=== PATIENT | female | born 1985 | race Caucasian/White ===

== ENCOUNTER 2019-06-12 18:48 | Emergency (ER) | payer OTHER, SELFPAY ==
[2019-06-12 18:53] VITALS: BP 116/81; PULSE 124; RESP 20; TEMP 37.3; O2SAT 100
--- NOTE | 2019-06-12 19:48 | PC.NURSE ---
Pt now teary eyed states, she feels bad because she looks like a bad person since none of her meds works and she's in constant pain.
[2019-06-12 19:49] LABS: Basophils Percent Auto 0.4 % (0.2-1.2); Eosinophils Absolute Auto 0.1 K/mm3 (0-0.3); Eosinophils Percent Auto 1.2 % (0-4.4); Hematocrit 40.7 % (37.0-47.0); Immature Granulocyte Absolute 0.02 K/mm3 (0.00-0.031); Immature Granulocyte Percent A 0.2 % (0-0.5); Lymphocytes Absolute Auto 2.18 K/mm3 (0.9-3.2); Lymphocytes Percent Auto 22.8 % (18.3-44.2); Mean Corpuscular HGB Conc 31.9 g/dl (32-36); Mean Corpuscular Hemoglobin 29.1 pg (26-34); Mean Corpuscular Volume 91.3 fl (80-100); Mean Platelet Volume 10.3 fl (7.4-10.4); Monocytes Absolute Auto 0.7 K/mm3 (0.1-0.6); Monocytes Percent Auto 7.5 % (2.6-8.5); Neutrophils Absolute Auto 6.5 K/mm3 (1.3-6.7); Neutrophils Percent Auto 67.9 % (45.5-73.1); Platelet Count Result 276 k/mm3 (150-375); Red Blood Count 4.46 M/mm3 (4.2-5.4); White Blood Count 9.6 K/mm3 (4.5-10.0)
[2019-06-12 20:00] LABS: Acetaminophen < 10 ug/mL (10-30)
[2019-06-12 20:01] LABS: Alanine Aminotransferase 13 U/L (4-35); Albumin Level 4.4 g/dL (3.5-5.1); Alkaline Phosphatase 84 U/L (38-126); Aspartate Amino Transferase 22 U/L (14-36); Bilirubin,Total 0.5 mg/dL (0.2-1.3); Blood Urea Nitrogen 3 mg/dL (7-17); Calcium 9.3 mg/dL (8.4-10.2); Carbon Dioxide 26 mmol/L (22-30); Chloride 105 mmol/L (98-107); Estimated CRCL calculation 109 ml/min; Estimated Glomerular Filt Rate > 60; Glucose 93 mg/dL (65-105); Potassium 3.4 mmol/L (3.4-5.0); Sodium 142 mmol/L (137-145)
--- NOTE | 2019-06-12 20:06 | ED.GENADULT ---
HPI - General Adult General Chief complaint: Unspecified Stated complaint: FACIAL PAIN/ POST SURGERY Time Seen by Provider: 06/12/19 19:08 Source: patient Mode of arrival: ambulatory Limitations: no limitations History of Present Illness HPI narrative: Patient presents with chief complaint of jaw pain that has been worsening since her maxillary surgery by Dr. Mays on Sunday. Patient states that her original surgery was in May however she developed infection of the bone graft and had to have a removed on Sunday. Patient states that she ran out of the pain medication prescribed by the maxillofacial surgeon and now her pain is immense. Patient states she has a high pain tolerance because she takes Percocet on a daily basis for chronic pain. Patient reports that she has felt feverish. Patient states that she feels a sensation of having a hole in her mouth which makes it painful when she swallows. Patient states that she has not been smoking cigarettes because of this she has had to vape. Patient states she is also felt feverish. Patient states she is not taking any pain medication other than a Tylenol this morning. Patient states that she has 120 tablets of Percocet prescribed by her spray painting machine operator but she has not used any as she was told to sit it to the side and take medication prescribed by the maxillofacial surgeon. Patient states that she was placed on azithromycin. Patient states she is out of the azithromycin at this time. Patient denies drainage from the incision area in her upper gum. Patient states occasionally there is a small amount of bleeding from the area. Related Data Allergies Allergy/AdvReac Type Severity Reaction Status Date / Time amoxicillin Allergy Unknown Skin Verified 05/31/19 18:42 Reaction clavulanic acid Allergy Unknown hives Verified 05/31/19 18:42 Review of Systems Review of Systems: Narrative: CONSTITUTIONAL: Reports feeling feverish denies chills, or sweats. EYES: Denies visual changes, redness, or discharge. ENT: Reports upper jaw pain denies rhinorrhea, congestion, sore throat, or otalgia. CARDIOVASCULAR: Denies chest pain, palpitations, or edema. RESPIRATORY: Denies cough or dyspnea. GASTROINTESTINAL: Denies abdominal pain, nausea, vomiting, or diarrhea. GENITOURINARY: Denies dysuria or hematuria. SKIN: Denies rash or itching. MUSCULOSKELETAL: Denies back pain, joint pain, or myalgia. NEUROLOGIC: Denies headache, numbness, dizziness, or weakness. PSYCHIATRIC: Denies anxiety or depression. [facility] Social History Social History (Updated 06/12/19 @ 20:10 by Linda Sanders PA-C) Smoking status: Current every day smoker Tobacco type: e-cigarettes Exam Narrative: Exam Narrative: GENERAL: Well-appearing, well-nourished, and in no acute distress. HEAD: Normocephalic, atraumatic. EYES: PERRLA and EOMI. ENT: Nares clear, no rhinorrhea or epistaxis. Mucous membranes moist. Oropharynx without tonsillar hypertrophy exudate or other lesions. Bilateral TMs pearly roblero nonbulging. sutures noted to upper gum. There is expected mild edema without extensive erythema. No signs of drainage or bleeding. NECK: Supple. No adenopathy or masses. No carotid bruits or JVD CHEST: Clear to auscultation. No respiratory distress. No wheezes rales or rhonchi HEART: Regular rate and rhythm. Normal peripheral pulses. EXTREMITIES: Normal range of motion. No edema. SKIN: Warm, dry, no rash. NEURO: No focal deficits. Alert and oriented x3. PSYCH: Normal mood and affect. Course Vital Signs Vital signs: Vital Signs Temperature 99.2 F 06/12/19 18:53 Pulse Rate 124 H 06/12/19 18:53 Respiratory Rate 06/12/19 18:53 Blood Pressure 116/81 06/12/19 18:53 Pulse Oximetry 100 06/12/19 18:53 Temperature 99.2 F 06/12/19 18:53 Pulse Rate 124 H 06/12/19 18:53 Respiratory Rate 06/12/19 18:53 Blood Pressure 116/81 06/12/19 18:53 Pulse Oximetry 100 06/12/19 18:53
== END 2019-06-12 20:50 | disposition home or self-care (01) ==
PROVIDERS: Physician Assistant; Emergency Provider Emergency Medicine
DX: G89.18 Other acute postprocedural pain (principal); R68.84 Jaw pain; F17.290 Nicotine dependence, other tobacco product, uncomplicated; Z79.899 Other long term (current) drug therapy
CPT/HCPCS: 36415; 80053; 80307; 85025; 99283

== ENCOUNTER 2021-09-20 11:35 | Emergency (ER) | payer OTHER, SELFPAY ==
--- NOTE | ~2021-09-20 | XR_ITS ---
EXAMINATION: XR humerus RT DATE: 09/20/2021 13:26 INDICATION: Right upper arm injury. TECHNIQUE: 2 views of right humerus were obtained. COMPARISON: None. FINDINGS: Bone alignment is normal. No fracture. Joint spaces are well maintained. IMPRESSION: 1. No fracture. Reviewed, dictated and finalized at location B. IMPRESSION: 1. No fracture.
--- NOTE | ~2021-09-20 | XR_ITS ---
EXAMINATION: XR forearm RT 2V DATE: 09/20/2021 12:37 INDICATION: Right forearm injury. TECHNIQUE: 2 views of right forearm were obtained. COMPARISON: None. FINDINGS: Bone alignment is normal. No fracture. Joint spaces are well maintained. There is no elbow joint effusion. IMPRESSION: 1. Normal right forearm. Reviewed, dictated and finalized at location B. IMPRESSION: 1. Normal right forearm.
--- NOTE | ~2021-09-20 | XR_ITS ---
EXAMINATION: XR lumbar spine 2-3V DATE: 09/20/2021 16:01 INDICATION: Mid and low back pain. Fall. TECHNIQUE: 3 views of lumbar spine were obtained. COMPARISON: None. FINDINGS: There is 10 degrees levoscoliosis of thoracolumbar spine. Vertebral body heights are normal . Intervertebral disc heights are normal. There are endplate osteophytes at a few levels. There is mu ltilevel mild facet joint osteoarthritis. IMPRESSION: 1. Mild lumbar spondylosis. 2. Thoracolumbar levoscoliosis. Reviewed, dictated and finalized at location B.
--- NOTE | ~2021-09-20 | XR_ITS ---
XR hip RT min 2V 09/20/2021 12:37 Indication: Right hip pain Procedure: 2 views right hip Comparison: No prior studies for comparison. Findings: Mild osteoarthritis of the right hip. No fracture or traumatic malalignment. Surrounding os seous structures and soft tissues are unremarkable. Impression: 1: No acute fracture. Reviewed, dictated and finalized at location A. Impression: 1: No acute fracture.
--- NOTE | ~2021-09-20 | XR_ITS ---
EXAMINATION: XR thoracic spine 2V DATE: 09/20/2021 16:01 INDICATION: Mid back pain. Fall. TECHNIQUE: 2 views of thoracic spine were obtained. COMPARISON: None. FINDINGS: There is 7 degrees dextrocurvature of mid thoracic spine. Vertebral body heights are normal . There is mildly decreased disc height at multiple levels in mid thoracic spine with endplate osteop hytes. IMPRESSION: 1. Mild thoracic spondylosis. Reviewed, dictated and finalized at location B.
--- NOTE | ~2021-09-20 | XR_ITS ---
EXAMINATION: XR knee RT 3V DATE: 09/20/2021 12:37 INDICATION: Right knee injury. Fall. TECHNIQUE: 3 views of right knee were obtained. COMPARISON: None. FINDINGS: Bone alignment is normal. No fracture. There is mild tricompartmental osteoarthritis charac terized by tiny osteophytes. No joint space narrowing. No knee joint effusion. IMPRESSION: 1. Mild right knee osteoarthritis. Reviewed, dictated and finalized at location B.
--- NOTE | ~2021-09-20 | CT_ITS ---
EXAMINATION: CT cervical spine wo con DATE: 09/20/2021 15:55 INDICATION: FALL TECHNIQUE: Computed tomography (CT) of the cervical spine was performed without intravenous contrast. Automated exposure control and iterative reconstruction technique were employed. The dose-length pro duct was 432.64 mGy-cm. COMPARISON: None FINDINGS: Counting reference: Craniocervical junction. There are seven cervical type vertebral bodies. Anatomic Variants: None.. Vertebral Body Alignment: Intact. Craniocervical junction: Moderate degenerative change. Alignment intact. Osseous structures/fracture: No evidence of a lytic or blastic process in the visualized spine. No evidence of acute fracture. Cervical soft tissues: The paraspinal soft tissues planes are maintained. Slightly enlarged, heterog eneous thyroid containing multiple hypodensities. 4 mm left upper lobe pulmonary nodule. Degenerative changes: No significant degenerative changes. IMPRESSION: No acute fracture or traumatic malalignment in the cervical spine. 4 mm left upper lobe pulmonary nod ule, consider follow-up noncontrast low-dose chest CT at 12 months, especially if the patient is at e levated risk. Multinodular goiter, consider outpatient thyroid ultrasound for further characterizatio n. Reviewed, dictated and finalized at location K. IMPRESSION: No acute fracture or traumatic malalignment in the cervical spine. 4 mm left up per lobe pulmonary nodule, consider follow-up noncontrast low-dose chest CT at 12 months, especially if the patient is at elevated risk. Multinodular goiter, consider outpatient thyroid ultrasound for further characterization.
[2021-09-20 11:52] VITALS: BP 133/84; PULSE 100; RESP 18; TEMP 36.8; O2SAT 99
--- NOTE | 2021-09-20 12:43 | ED.GENADULT ---
HPI - General Adult General Chief complaint: Unspecified Stated complaint: fall/arm injury/esphagitis Time Seen by Provider: 09/20/21 12:41 Source: patient Limitations: no limitations History of Present Illness HPI narrative: Patient came from home after a fall at home. History of chronic lower back pain, patient somehow lost her balance and fell landed on the right side of her body from standing position. She denies loss of consciousness, or head injury. Complaining of right elbow pain, right knee pain, right hip pain increased lower back pain also upper back pain. Patient on chronic narcotics. She denies any fever, chills, nausea, vomiting, shortness of breath, chest pain. Related Data Allergies Allergy/AdvReac Type Severity Reaction Status Date / Time amoxicillin Allergy Unknown Skin Verified 09/20/21 13:21 Reaction clavulanic acid Allergy Unknown hives Verified 09/20/21 13:21 NSAIDS (Non-Steroidal AdvReac Nausea and Verified 09/20/21 13:21 Anti-Inflamma Vomiting Review of Systems Review of Systems: All systems reviewed & are unremarkable except as noted in HPI and below PMFSH Past Medical History Medical History (Updated 09/20/21 @ 16:30 by Danish Dominguez MD) Abnormal uterine bleeding Endometriosis Migraine Ovarian cyst Surgical History Surgical History History of facial surgery Lip; Bone graft; tooth extraction Social History Social History Smoking status: Current every day smoker Tobacco type: e-cigarettes/vaping Exam Narrative: General appearance: Well-developed, well-nourished, at the bedside Skin: Normal color Head: Normocephalic, nontraumatic Eyes: Clear conjunctiva ENT: Oropharynx normal, ears normal, nose normal Neck: Supple, nontender Chest and respiratory: Airway patent, no respiratory distress, no accessory muscle use Heart: Regular rate/rhythm Abdomen: Soft, nontender, no organomegaly, quiet bowel sounds Vascular: Normal peripheral pulses, normal capillary refill. Musculoskeletal: Diffuse tenderness to the right arm and forearm, no deformity, slight limited range of motion of right hip and right knee, no deformity or bruises or swelling. Diffuse back pain upper abdomen, no extensive lower back and skin damage from chronic heating pad Neurologic: Alert and oriented ?3, [employer] is normal as tested, no gross motor deficit Course Vital Signs Vital signs: Vital Signs Temperature 36.8 C 09/20/21 11:52 Pulse Rate 100 09/20/21 11:52 Respiratory Rate 18 09/20/21 11:52 Blood Pressure 133/84 09/20/21 11:52 Pulse Oximetry 99 09/20/21 11:52 Temperature 37.1 C 09/20/21 12:45 Pulse Rate 84 09/20/21 15:03 Respiratory Rate 18 09/20/21 15:03 Blood Pressure 118/85 09/20/21 15:03 Pulse Oximetry 99 09/20/21 15:03 Medical Decision Making Vital Signs Vital Signs: Vital Signs Temperature 36.8 C 09/20/21 11:52 Pulse Rate 100 09/20/21 11:52 Respiratory Rate 18 09/20/21 11:52 Blood Pressure 133/84 09/20/21 11:52 Pulse Oximetry 99 09/20/21 11:52 Temperature 37.1 C 09/20/21 12:45 Pulse Rate 84 09/20/21 15:03 Respiratory Rate 18 09/20/21 15:03 Blood Pressure 118/85 09/20/21 15:03 Pulse Oximetry 99 09/20/21 15:03 Imaging Data My impression: Impressions Hip X-Ray 09/20/21 12:41 Impression: 1: No acute fracture. Knee X-Ray 09/20/21 12:46 IMPRESSION: 1. Mild right knee osteoarthritis. Forearm X-Ray 09/20/21 12:48 IMPRESSION: 1. Normal right forearm. Humerus X-Ray 09/20/21 13:26 IMPRESSION: 1. No
[2021-09-20 12:45] VITALS: BP 124/82; PULSE 87; RESP 16; TEMP 37.1; O2SAT 99
[2021-09-20 13:15] VITALS: BP 137/77; PULSE 81; RESP 18; O2SAT 100
--- NOTE | 2021-09-20 14:48 | PC.NURSE ---
Pt to nurses station complaining of wait time. Asking for pain medications. Pt given blanket and updated on ED process
[2021-09-20 15:03] VITALS: BP 118/85; PULSE 84; RESP 18; O2SAT 99
[2021-09-20] MEDS: HYDROmorphone HCL INJ (*CRX) 1 MG/ML SYR IM (15:29)
[2021-09-20] MEDS: ONDANSETRON HCL ODT 4 MG TABLET PO (15:29)
[2021-09-20] MEDS: KETOROLAC (*BKC) 60 MG/2 ML VIAL IM (16:41)
[2021-09-20 16:45] VITALS: BP 130/80; PULSE 94; RESP 16; O2SAT 98
== END 2021-09-20 16:45 | disposition home or self-care (01) ==
PROVIDERS: Emergency Provider Emergency Medicine
DX: G89.29 Other chronic pain (principal); M54.50 Low back pain, unspecified; T14.8XXA Other injury of unspecified body region, initial encounter; R91.1 Solitary pulmonary nodule; E04.9 Nontoxic goiter, unspecified; F17.290 Nicotine dependence, other tobacco product, uncomplicated; W18.30XA Fall on same level, unspecified, initial encounter; Y92.009 Unspecified place in unspecified non-institutional (private) residence as the place of occurrence of the external cause
CPT/HCPCS: 72070; 72100; 72125; 73060; 73090; 73502; 73562; 96372; 99284; A9270; J1170; J1885